=== PATIENT | female | born 1965 | race African-American/Black ===

== ENCOUNTER 2024-12-28 01:59 | Emergency (ER) | payer OTHER ==
--- NOTE | 2024-12-28 02:54 | EDPHYS ---
Physician Documentation [facility] Name: Jennifer Angeles Age: 59 yrs Sex: Female : 1965 Arrival Date: 12/28/2024 Time: 01:59 Bed 6 Private MD: ED Physician Melvin Otero HPI: 12/28 02:57 This 59 yrs old Black Female presents to ER via Unassigned with complaints of LEFT LEG ec2 PAIN. 02:57 Patient with history of sciatica and neuropathy arrives today for chronic left lower ec2 extremity pain. Patient reports no falls injuries or trauma. Patient reports that she is been experiencing pain ongoing for the past several years, has had outpatient physical therapy. Reports that she is on gabapentin and amitriptyline, states that she saw her primary care doctor however they did not prescribe her pain medications, so now she comes to the ED to be evaluated.. Historical: - Allergies: 03:22 Morphine; br2 03:22 SHELLFISH; br2 - PMHx: 03:22 Congestive heart failure; Anxiety; br2 - Immunization history:: Adult Immunizations not up to date. - Infectious Disease History:: Denies. - Social history:: Smoking status: Patient reports the use of cigarette tobacco products, smokes one-half pack cigarettes per day. ROS: 02:58 Constitutional: as per hpi ec2 Exam: 02:58 Constitutional: GEN: NAD Head: atraumatic Eyes: EOMI Ears: External ears are ec2 normal. CV: regular rate LUNGS: no respiratory distress ABD: non-distended SKIN: no evidence of rashes MSK: no evidence of trauma, positive left-sided straight leg raise test. Intact neurovascular status in left lower extremity. Good range of motion throughout the left lower extremity. No C/T/L-spine TTP, deformities or crepitus or step-offs. Vital Signs: 02:30 BP 129 / 89; Pulse 80; Resp 16; Temp 97.8(O); Pulse Ox 100% on R/A; Weight 74.39 kg; br2 Height 5 ft. 7 in. ; Pain 6/10; 03:24 BP 113 / 71; Pulse 73; Resp 18; Pulse Ox 100% ; br2 02:30 Body Mass Index 25.69 (74.39 kg, 170.18 cm) br2 02:30 Pain Scale: Adult br2 MDM: 02:05 Medical Screening Exam initiated ec2 02:58 Data reviewed: vital signs, nurses notes. ED course: Patient arrives today for left ec2 lower extremity pain. Examination consistent with sciatica. Patient with intact distal neurovascular status, doubt arterial pathology, doubt DVT. Doubt acute spinal cord pathology given lack of red flag symptoms. Will discharge home. Return precautions given.. Administered Medications: 03:15 Drug: Ketorolac IM 30 mg IM once Route: IM; Site: right gluteus; br2 03:46 Follow up: Response: No adverse reaction br2 03:15 Drug: HYDROcodone-acetaminophen PO 5 mg-325 mg 2 tabs PO once Route: PO; br2 03:46 Follow up: Response: Pain is decreased br2 Disposition Summary: 12/28/24 02:53 Discharge Ordered Notes: Location: Home ec2 Condition: Stable ec2 Diagnosis - Sciatica, left side ec2 Followup: ec2 - With: Private Physician - When: - Reason: Re-evaluation by your physician Discharge Instructions: - Discharge Summary Sheet ec2 - Sciatica ec2 - Sciatica, [id number] ec2 Forms: - Medication Reconciliation Form ec2 - Antibiotic Education ec2 - Prescription Opioid Use ec2 - Patient Portal Instructions ec2 - Leadership Thank You Letter ec2 Prescriptions: - acetaminophen-codeine 300-30 mg Oral tablet - take 1 tablet ORAL route every 4 hours as needed for pain; 15 tablet; Refills: ec2 0, Product Selection Permitted Signatures: Melvin Otero MD MD ec2 Lucy Montalvo RN RN br2
[2024-12-28] MEDS ORDERED: KETOROLAC 30 MG/ML INJ ONE (03:10)
[2024-12-28] MEDS ORDERED: HYDROCODONE/APAP 5/325 MG TAB ONE (03:10)
--- NOTE | 2024-12-28 03:50 | ER ---
Nurse's Notes [facility] Name: Jennifer Angeles Age: 59 yrs Sex: Female : 1965 Arrival Date: 12/28/2024 Time: 01:59 Bed 6 Private MD: Diagnosis: Sciatica, left side Presentation: 12/28 02:30 Chief complaint: Patient states: PT STATE AFTER SITTING IN CHAIR FOR 3 HRS AT [facility] br2 AND NOW SHE IS HAVING PAIN TO ENTIRE LEFT LEG. Coronavirus screen: Client denies travel out of the [place] in the last 14 days. Ebola Screen: Patient denies exposure to infectious person. Initial Sepsis Screen: Does the patient meet any 2 criteria? No. Patient's initial sepsis screen is negative. Does the patient have a suspected source of infection? No. Patient's initial sepsis screen is negative. Risk Assessment: Do you want to hurt yourself or someone else? Patient reports no desire to harm self or others. 02:30 Method Of Arrival: Ambulatory br2 02:30 Acuity: YAZMIN 4 br2 Triage Assessment: 03:22 General: Appears uncomfortable, Behavior is calm, cooperative. Pain: Complains of pain br2 in lateral aspect of left thigh, lateral aspect of left knee, lateral aspect of left calf and left lateral ankle Pain currently is 2 out of 10 on a pain scale. Neuro: [place] Agitation-Sedation Scale (RASS): 0 - Alert and Calm Level of Consciousness is awake, alert, obeys commands, Oriented to person, place, time, situation. Respiratory: Airway is patent Respiratory effort is even, unlabored, Respiratory pattern is regular, symmetrical. Musculoskeletal: Capillary refill is > 3 seconds, Range of motion: intact in all extremities. Historical: - Allergies: 03:22 Morphine; br2 03:22 SHELLFISH; br2 - PMHx: 03:22 Congestive heart failure; Anxiety; br2 - Immunization history:: Adult Immunizations not up to date. - Infectious Disease History:: Denies. - Social history:: Smoking status: Patient reports the use of cigarette tobacco products, smokes one-half pack cigarettes per day. Screenin:30 [facility] ED Fall Risk Assessment (Adult) History of falling in the last 3 months, br2 including since admission No falls in past 3 months (0 pts) Confusion or Disorientation No (0 pts) Intoxicated or Sedated No (0 pts) Impaired Gait No (0 pts) Mobility Assist Device Used No (0 pt) Altered Elimination Yes (1 pt) Score/Fall Risk Level 0 - 2 = Low Risk Oriented to surroundings. Abuse screen: Denies threats or abuse. Denies injuries from another. Nutritional screening: No deficits noted. Tuberculosis screening: No symptoms or risk factors identified. Assessment: 03:47 Reassessment: SEE TRIAGE ASSESSMENT. br2 Vital Signs: 02:30 BP 129 / 89; Pulse 80; Resp 16; Temp 97.8(O); Pulse Ox 100% on R/A; Weight 74.39 kg; br2 Height 5 ft. 7 in. ; Pain 6/10; 03:24 BP 113 / 71; Pulse 73; Resp 18; Pulse Ox 100% ; br2 02:30 Body Mass Index 25.69 (74.39 kg, 170.18 cm) br2 02:30 Pain Scale: Adult br2 ED Course: 02:03 Patient arrived in ED. [id number] 02:05 Melvin Otero MD is Attending Physician. ec2 02:30 Patient has correct armband on for positive identification. Bed in low position. Call br2 light in reach. Side rails up X 1. Provided Education on: PLAN OF CARE. 02:47 Lucy Montalvo, RN is Primary Nurse. br2 03:22 Triage completed. br2 03:47 No provider procedures requiring assistance completed. Patient did not have IV access br2 during this emergency room visit. Administered Medications: 03:15 Drug: Ketorolac IM 30 mg IM once Route: IM; Site: right gluteus; br2 03:46 Follow up: Response: No adverse reaction br2 03:15 Drug: HYDROcodone-acetaminophen PO 5 mg-325 mg 2 tabs PO once Route: PO; br2 03:46 Follow up: Response: Pain is decreased br2 Outcome: 02:53 Discharge ordered by . ec2 03:47 Discharged to home ambulatory, br2 03:47 Condition: stable 03:47 Discharge instructions given to patient, Instructed on discharge instructions, follow up and referral plans. Demonstrated understanding of instructions, follow-up care, medications, Prescriptions given X 1, 03:49 Patient left the ED. br2 Signatures: Phuong Duque [id number] Melvin Otero MD MD ec2 Lucy Montalvo, RN RN br2
[2024-12-28 11:40] VITALS: BP 113/71; O2SAT 100
[2024-12-28 13:03] VITALS: TEMP 97.8
== END 2024-12-28 03:49 | disposition home or self-care (01) ==
LOC: ER 01:59
DX: M54.32 Sciatica, left side (principal); F17.210 Nicotine dependence, cigarettes, uncomplicated